=== PATIENT | female | born 1955 | race Caucasian/White ===

== ENCOUNTER 2018-10-14 08:45 | Outpatient (CLI) | payer MEDICARE, OTHER ==
--- NOTE | 2018-10-14 12:35 | ULT ---
LIMITED ULTRASOUND LEFT AXILLA: 10/14/2018 HISTORY: Firm, palpable abnormality, left axilla. FINDINGS: No solid mass or enlarged lymph node is seen in the left axilla. However, in the region of the palpa ble abnormality, there is a (snowstorm) sonographic appearance, which corresponds to mammographic fin dings of a breast implant rupture within the left axilla. This area is difficult to accurately measu re on sonographic evaluation. No other findings. IMPRESSION: 1. BI-RADS category 2-Benign findings. Routine annual mammographic screening is recommended. 2. Sonographic and mammographic findings suggestive of rupture of the left breast implant with silic one seen in the left axilla. Plastic surgery consultation is recommended for further evaluation. MR I breast can be performed if warranted. POS: OFF
--- NOTE | 2018-10-18 13:25 | MMO ---
Bilateral MAMMO Bilat Diag [facility]. CLINICAL HISTORY: Patient is 63 years old and is seen for diagnostic exam and in the left breast. The patient has the following family history of breast cancer: daughter, at age 40. The patient has no personal history of cancer. The patient has a history of bilateral Implants in 1981. VIEWS: The views performed were: bilateral craniocaudal; bilateral mediolateral oblique; bilateral mediolateral; and bilateral Implant displaced with tomosynthesis. FILMS COMPARED: The present examination has been compared to a prior imaging study performed at [facility] on 10/14/2018. MAMMOGRAM FINDINGS: There are scattered fibroglandular densities. There are benign appearing and vascular calcifications seen in both breasts. Bilateral silicone breast implants are present. The left breast implant has a different morphology than the right breast implant. Increased density is seen in the upper outer left breast and extending into the left axilla. Findings are most suggestive of implant rupture. Ultrasound shows a typical sonographic appearance of silicone in the left axilla in region of the palpable abnormality and also suggestive of implant rupture. There are no suspicious masses, suspicious calcifications, or new areas of architectural distortion. IMPRESSION: THERE IS NO MAMMOGRAPHIC EVIDENCE OF MALIGNANCY. PLASTIC SURGERY CONSULTATION IS RECOMMENDED FOR FURTHER EVALUATION OF THE LEFT BREAST IMPLANT. MRI COULD BE PERFORMED FOR EVALUATION OF THE IMPLANTS IF WARRANTED. A ROUTINE FOLLOW-UP MAMMOGRAM IN 1 YEAR IS RECOMMENDED. THE RESULTS OF THIS EXAM WERE SENT TO THE PATIENT. ACR BI-RADS Category 2 - Benign finding MAMMOGRAPHY NOTE: 1. A negative mammogram report should not delay a biopsy if a dominant of clinically suspicious mass is present. 2. Approximately 10% to 15% of breast cancers are not detected by mammography. 3. Adenosis and dense breasts may obscure an underlying neoplasm.
== END 2018-10-14 08:46 | disposition home or self-care (01) ==
LOC: BICMAMMO 08:45
PROVIDERS: ATTEND Clinical Nurse Specialist Medical-Surgical
DX: N63.0 Unspecified lump in unspecified breast (principal); Z98.82 Breast implant status; Z80.3 Family history of malignant neoplasm of breast
CPT/HCPCS: 76642; 77066; G0279